=== PATIENT | male | born 1990 ===

== ENCOUNTER 2016-08-30 15:19 | Emergency (ER) | payer OTHER ==
[2016-08-30 15:26] VITALS: BP 105/60; PULSE 66; RESP 16; TEMP 98.4; O2SAT 97
--- NOTE | 2016-08-30 15:37 | ED PDOC ---
HPI: CCC, URI, Sore Throat Time Seen by Provider: 08/30/16 15:28 Chief Complaint (Nursing): ENT Problem Chief Complaint (Provider): cough, throat pain History Per: Patient History/Exam Limitations: no limitations Onset/Duration Of Symptoms: Days ([id number] ) Current Symptoms Are (Timing): Still Present Additional Complaint(s): 26 y/o male presents to the emergency department with a complaint of productive cough described as "lungs filled with mucous" for the past 2 weeks with associated throat irritation. Patient denies chest pain or shortness of breath. He denies fever or chills. Patient is tolerating liquids and solids. He denies recent travel or known sick contacts. Patient admits to smoking 3-4 cigarettes per day and states that he smokes marijuana about 7-8 times per day. PMD: none Past Medical History Reviewed: Historical Data, Nursing Documentation, Vital Signs Vital Signs: Last Vital Signs Temp 98.4 F 08/30/16 15:25 Pulse 66 08/30/16 15:25 Resp 16 08/30/16 15:25 BP 105/60 08/30/16 15:25 Pulse Ox 97 08/30/16 15:44 - Medical History PMH: Anxiety, Gastritis - Surgical History Surgical History: No Surg Hx - Family History Family History: States: No Known Family Hx - Living Arrangements Living Arrangements: With Family - Social History Current smoker - smoking cessation education provided: Yes (light smoker <10 cigarettes daily) Alcohol: Social Drugs: Cannabis (7-8 times a day) - Home Medications Home Medications: Ambulatory Orders Medication Instructions Recorded Ondansetron [Zofran] 4 mg PO Q6H PRN #10 tab 11/11/13 Sertraline [Zoloft] 50 mg PO DAILY 11/14/13 Acetaminophen/Hydrocodone Bi 1 tab PO TID PRN #8 tab 11/15/13 [Vicodin 300 mg-5 mg] Amoxicillin/Clavulanate [Augmentin 1 tab PO BID #6 tab 11/15/13 875 MG-125 MG] Ibuprofen [Motrin Tab] 600 mg PO Q8H PRN #20 tab 11/26/13 Penicillin VK [Pen-Vee K] 500 mg PO BID #20 tab 11/26/13 Acetaminophen [Tylenol] 650 mg PO Q6 #20 tab 06/20/15 Ibuprofen [Motrin] 600 mg PO Q8 #20 tab 09/05/14 Esomeprazole Magnesium [Nexium] 20 mg PO DAILY #30 ecc 10/22/14 LORazepam [Ativan] 0.5 mg PO Q8 PRN #6 tab 07/03/15 Albuterol HFA [Ventolin HFA 90 1 puff IH ASDIR #1 unit 08/30/16 mcg/actuation (8 g)] Azithromycin [Zithromax] 250 mg PO DAILY #6 tab 08/30/16 Benzonatate 200 mg PO TID PRN #20 capsule 08/30/16 - Allergies Allergies/Adverse Reactions: Allergies Allergy/AdvReac Type Severity Reaction Status Date / Time No Known Allergies Allergy Verified 08/30/16 15:25 Review of Systems ROS Statement: Except As Marked, All Systems Reviewed And Found Negative Constitutional: Negative for: Fever, Chills ENT: Positive for: Throat Pain (throat irritation) Cardiovascular: Negative for: Chest Pain Respiratory: Positive for: Cough, Sputum. Negative for: Shortness of Breath, SOB with Exertion Gastrointestinal: Negative for: Nausea, Vomiting Neurological: Negative for: Headache, Dizziness Physical Exam - Reviewed Nursing Documentation Reviewed: Yes Vital Signs Reviewed: Yes - Physical Exam Appears: Positive for: Well, Non-toxic, No Acute Distress Skin: Positive for: Normal Color ENT: Negative for: Nasal Congestion, Pharyngeal Erythema, Tonsillar Exudate, Tonsillar Swelling Neck: Positive for: Normal, Supple Cardiovascular/Chest: Positive for: Regular Rate, Rhythm. Negative for: Murmur Respiratory: Positive for: Normal Breath Sounds, Other (cough noted during exam) . Negative for: Accessory Muscle Use, Respiratory Distress Neurologic/Psych: Positive for: Alert, Oriented - ECG O2 Sat by Pulse Oximetry: 97 (RA) Pulse Ox Interpretation: Normal - Other Rad CXR X-Ray: Interpreted by Me, Viewed By Me X-Ray Interpretation: no acute finding Medical Decision Making Medical Decision Making: Time: 15:25 Initial Impression: Cough with throat pain Initial Plan: -- Chest 2 views (RAD) Prescription given for Zithromax, Tessalon Perles and Ventolin. Patient was advised to take medicines as directed. He was referred to clinic for follow-up and was counseled regarding smoking cessation. Scribe Attestation: Documented by Caridad Leon, acting as a scribe for Izabela Cueva PA-C. Provider Scribe Attestation: All medical record entries made by the Scribe were at my direction and personally dictated by me. I have reviewed the chart and agree that the record accurately reflects my personal performance of the history, physical exam, medical decision making, and the department course for this patient. I have also personally directed, reviewed, and agree with the discharge instructions and disposition. Disposition - Clinical Impression Clinical Impression: Bronchitis - Patient ED Disposition Is Patient to be Admitted: No Counseled Patient/Family Regarding: Studies Performed, Diagnosis, Need For Followup, Rx Given - Disposition Referrals: [facility] [Outside] Disposition: Routine/Home Disposition Time: 16:15 Condition: STABLE Additional Instructions: Take prescription medications as directed. Stop smoking. Follow up in 2-3 days clinic. Prescriptions: Albuterol HFA [Ventolin HFA 90 mcg/actuation (8 g)] 1 puff IH ASDIR #1 unit Azithromycin [Zithromax] 250 mg PO DAILY #6 tab Benzonatate 200 mg PO TID PRN #20 capsule PRN Reason: Cough Instructions: Acute Bronchitis (ED), How to Stop Smoking (ED)
--- NOTE | 2016-08-30 17:00 | RAD ---
HISTORY: cough COMPARISON: Chest x-ray performed 07/03/15 TECHNIQUE: Chest PA and lateral FINDINGS: LUNGS: No focal consolidation. Please note that chest x-ray has limited sensitivity for the detection of pulmonary masses. PLEURA: No significant pleural effusion identified. No definite pneumothorax . CARDIOVASCULAR: The cardiomediastinal silhouette appears within normal limits of size. OSSEOUS STRUCTURES: No acute osseous abnormality identified. VISUALIZED UPPER ABDOMEN: Unremarkable. OTHER FINDINGS: None. IMPRESSION: No focal consolidation, significant pleural effusion, or definite pneumothorax identified.
== END 2016-08-30 16:58 | disposition home or self-care (01) ==
LOC: H.ER 15:19
DX: J40 Bronchitis, not specified as acute or chronic (principal)

== ENCOUNTER 2016-09-17 14:49 | Emergency (ER) | payer SELFPAY ==
[2016-09-17 14:52] VITALS: BP 121/75; PULSE 64; RESP 18; TEMP 98.2; O2SAT 99
--- NOTE | 2016-09-17 15:03 | ED PDOC ---
HPI: CCC, URI, Sore Throat Time Seen by Provider: 09/17/16 14:53 Chief Complaint (Nursing): ENT Problem Chief Complaint (Provider): ENT problem History Per: Patient History/Exam Limitations: no limitations Onset/Duration Of Symptoms: Days (2x) Location Of Pain: Throat (patient is concerned for throat swelling) Severity: Moderate Additional Complaint(s): 26 year old male with a pertinent medical history of bronchitis (diagnosed 2x weeks ago in ED) and anxiety presents to the ED with complaints of throat pain that started 2x days ago. He reports that his throat feels swollen (has difficulty swallowing) and numb and he thinks it is due to the prescription given to him for his bronchitis. He also reports having a mild cough. Patient admits to smoking. Patient denies having fevers, chills, nausea, vomiting, and diarrhea. PMD: Patient does not have a PMD. Past Medical History Reviewed: Historical Data, Nursing Documentation, Vital Signs Vital Signs: Last Vital Signs Temp 98.2 F 09/17/16 14:50 Pulse 64 09/17/16 14:50 Resp 18 09/17/16 14:50 BP 121/75 09/17/16 14:50 Pulse Ox 99 09/17/16 15:16 - Medical History PMH: Anxiety, Bronchitis, Gastritis - Surgical History Surgical History: No Surg Hx - Family History Family History: States: Unknown Family Hx - Living Arrangements Living Arrangements: With Family - Social History Current smoker - smoking cessation education provided: Yes Drugs: Cannabis - Immunization History Hx Tetanus Toxoid Vaccination: No Hx Influenza Vaccination: No Hx Pneumococcal Vaccination: No - Home Medications Home Medications: Ambulatory Orders Medication Instructions Recorded Ondansetron [Zofran] 4 mg PO Q6H PRN #10 tab 11/11/13 Sertraline [Zoloft] 50 mg PO DAILY 11/14/13 Acetaminophen/Hydrocodone Bi 1 tab PO TID PRN #8 tab 11/15/13 [Vicodin 300 mg-5 mg] Amoxicillin/Clavulanate [Augmentin 1 tab PO BID #6 tab 11/15/13 875 MG-125 MG] Ibuprofen [Motrin Tab] 600 mg PO Q8H PRN #20 tab 11/26/13 Penicillin VK [Pen-Vee K] 500 mg PO BID #20 tab 11/26/13 Acetaminophen [Tylenol] 650 mg PO Q6 #20 tab 06/20/15 Ibuprofen [Motrin] 600 mg PO Q8 #20 tab 09/05/14 Esomeprazole Magnesium [Nexium] 20 mg PO DAILY #30 ecc 10/22/14 LORazepam [Ativan] 0.5 mg PO Q8 PRN #6 tab 07/03/15 Albuterol HFA [Ventolin HFA 90 1 puff IH ASDIR #1 unit 08/30/16 mcg/actuation (8 g)] Azithromycin [Zithromax] 250 mg PO DAILY #6 tab 08/30/16 Benzonatate 200 mg PO TID PRN #20 capsule 08/30/16 Ibuprofen [Motrin] 600 mg PO Q8 PRN #15 tab 09/17/16 - Allergies Allergies/Adverse Reactions: Allergies Allergy/AdvReac Type Severity Reaction Status Date / Time No Known Allergies Allergy Verified 08/30/16 15:25 Review of Systems ROS Statement: Except As Marked, All Systems Reviewed And Found Negative Constitutional: Negative for: Fever, Chills ENT: Positive for: Throat Pain, Throat Swelling Respiratory: Positive for: Cough. Negative for: Shortness of Breath Gastrointestinal: Negative for: Nausea, Vomiting Physical Exam - Reviewed Nursing Documentation Reviewed: Yes Vital Signs Reviewed: Yes - Physical Exam Appears: Positive for: Well, Non-toxic, No Acute Distress Head Exam: Positive for: ATRAUMATIC, NORMOCEPHALIC Skin: Positive for: Normal Color, Warm, Dry ENT: Positive for: Normal ENT Inspection, Pharynx Is (clear), TM Is/Are (normal) . Negative for: Pharyngeal Erythema (no edema noted) Neck: Positive for: Normal Cardiovascular/Chest: Positive for: Regular Rate, Rhythm Respiratory: Positive for: Normal Breath Sounds. Negative for: Stridor, Wheezing, Respiratory Distress Neurologic/Psych: Positive for: Alert, Oriented (3x), Other (patient is sleeping in full sentences) - ECG O2 Sat by Pulse Oximetry: 99 (RA) Pulse Ox Interpretation: Normal - Progress ED Course And Treament: Old ED records reviewed. Patient was seen in ED 08/30/16 for cough and sore throat. He was diagnosed with bronchitis and given Rx for Ventolin, zithromax, and benzonatate and was instructed to stop smoking. Medical Decision Making Medical Decision Makin:53 Initial impression: 26 year old male with a history of bronchitis has throat pain. Plan: Reviewed old ED records (see ED course/Tx). Instructed patient to stop taking benzonatate to stop throat numbness and to stop smoking. Scribe Attestation: Documented by Marleen Henson, acting as a scribe for Westley Londono PA-C. Provider Scribe Attestation: All medical record entries made by the Scribe were at my direction and personally dictated by me. I have reviewed the chart and agree that the record accurately reflects my personal performance of the history, physical exam, medical decision making, and the department course for this patient. I have also personally directed, reviewed, and agree with the discharge instructions and disposition. Disposition - Clinical Impression Clinical Impression: Sore throat - Patient ED Disposition Is Patient to be Admitted: No - Disposition Referrals: [facility] [Outside] Disposition Time: 15:24 Condition: FAIR Prescriptions: Ibuprofen [Motrin] 600 mg PO Q8 PRN #15 tab PRN Reason: Sore Throat Instructions: How to Stop Smoking (ED), Pharyngitis (ED)
== END 2016-09-17 15:25 | disposition home or self-care (01) ==
LOC: H.ER 14:49
DX: R07.0 Pain in throat (principal); F17.200 Nicotine dependence, unspecified, uncomplicated

== ENCOUNTER 2017-05-19 23:52 | Emergency (ER) | payer SELFPAY ==
[2017-05-20] VITALS: BP 117/85; PULSE 73; RESP 18; TEMP 98.4; O2SAT 99
[2017-05-20] MEDS ORDERED: Sodium Chloride 0.9% 1,000 ML IV STA (00:08)
--- NOTE | 2017-05-20 00:11 | ED PDOC ---
HPI: Abdomen Time Seen by Provider: 05/20/17 00:01 Chief Complaint (Nursing): GI Problem Chief Complaint (Provider): Nausea History Per: Patient Additional Complaint(s): Pt reports uneasy feeling in stomach X 2 weeks, nausea with eating, decreased appetite and 10 lb weight loss in past 2 months. Reports chills today. Denies fever, vomiting, constipation, diarrhea. Past Medical History Reviewed: Nursing Documentation, Vital Signs Vital Signs: Last Vital Signs Temp 98.4 F 05/19/17 23:57 Pulse 73 05/19/17 23:57 Resp 18 05/19/17 23:57 BP 117/85 05/19/17 23:57 Pulse Ox 99 05/19/17 23:57 - Medical History PMH: Anxiety, Bronchitis, Gastritis - Surgical History Surgical History: No Surg Hx - Family History Family History: States: Unknown Family Hx - Social History Current smoker - smoking cessation education provided: No Alcohol: Occasional Drugs: Cannabis (Daily) - Immunization History Hx Tetanus Toxoid Vaccination: No Hx Influenza Vaccination: No Hx Pneumococcal Vaccination: No - Home Medications Home Medications: Ambulatory Orders Medication Instructions Recorded Ondansetron [Zofran] 4 mg PO Q6H PRN #10 tab 11/11/13 Sertraline [Zoloft] 50 mg PO DAILY 11/14/13 Acetaminophen/Hydrocodone Bi 1 tab PO TID PRN #8 tab 11/15/13 [Vicodin 300 mg-5 mg] Amoxicillin/Clavulanate [Augmentin 1 tab PO BID #6 tab 11/15/13 875 MG-125 MG] Ibuprofen [Motrin Tab] 600 mg PO Q8H PRN #20 tab 11/26/13 Penicillin VK [Pen-Vee K] 500 mg PO BID #20 tab 11/26/13 Acetaminophen [Tylenol] 650 mg PO Q6 #20 tab 09/05/14 Ibuprofen [Motrin] 600 mg PO Q8 #20 tab 09/05/14 Esomeprazole Magnesium [Nexium] 20 mg PO DAILY #30 ecc 10/22/14 LORazepam [Ativan] 0.5 mg PO Q8 PRN #6 tab 07/03/15 Albuterol HFA [Ventolin HFA 90 1 puff IH ASDIR #1 unit 08/30/16 mcg/actuation (8 g)] Azithromycin [Zithromax] 250 mg PO DAILY #6 tab 08/30/16 Benzonatate 200 mg PO TID PRN #20 capsule 08/30/16 Ibuprofen [Motrin] 600 mg PO Q8 PRN #15 tab 09/17/16 - Allergies Allergies/Adverse Reactions: Allergies Allergy/AdvReac Type Severity Reaction Status Date / Time No Known Allergies Allergy Verified 08/30/16 15:25 Review of Systems Constitutional: Positive for: Chills, Weight loss. Negative for: Fever, Weakness, Malaise Respiratory: Negative for: Cough, Shortness of Breath Gastrointestinal: Positive for: Nausea. Negative for: Vomiting, Abdominal Pain , Diarrhea, Hematochezia, Hematemesis Genitourinary Male: Negative for: Dysuria, Hematuria Musculoskeletal: Negative for: Neck Pain, Back Pain Skin: Negative for: Rash, Lesions Neurological: Negative for: Headache, Dizziness Physical Exam - Reviewed Nursing Documentation Reviewed: Yes Vital Signs Reviewed: Yes - Physical Exam Appears: Positive for: Well, No Acute Distress Skin: Positive for: Normal Color, Warm, Dry Eye Exam: Positive for: Normal appearance, EOMI, PERRL ENT: Positive for: Other (MM dry) Cardiovascular/Chest: Positive for: Regular Rate, Rhythm Respiratory: Positive for: Normal Breath Sounds. Negative for: Rales, Rhonchi, Wheezing Gastrointestinal/Abdominal: Positive for: Bowel Sounds, Soft, Tenderness (Mild epigastric/LUQ). Negative for: Mass, Distended, Guarding, Rebound Back: Positive for: Normal Inspection Extremity: Positive for: Normal ROM Neurologic/Psych: Positive for: Alert, Oriented - ECG O2 Sat by Pulse Oximetry: 99 Medical Decision Making Medical Decision Makin yo male with decreased appetite, nausea and abdominal pain. - labs - CT abd/pelvis - IVF - Zofran - Bentyl Disposition - Disposition
[2017-05-20 00:19] LABS: BASO # 0.1 K/uL (0.0-0.2); BASO % 0.6 % (0.0-2.0); EOS # 0.1 K/uL (0.0-0.7); EOS % 0.7 % (0.0-4.0); HEMOGLOBIN 14.3 g/dL (12.0-18.0); LYMPH # 2.4 K/uL (1.0-4.3); LYMPH % 19.4 % (20.0-40.0); MEAN CELL VOLUME 93.6 fl (80.0-94.0); MEAN CORPUSCULAR HEMOGLOBIN 31.4 pg (27.0-31.0); MEAN CORPUSCULAR HGB CONC 33.5 g/dL (33.0-37.0); MEAN PLATELET VOLUME 7.5 fl (7.2-11.7); MONO # 0.9 K/uL (0.0-0.8); NEUT # 8.8 K/uL (1.8-7.0); NEUT % 72.3 % (50.0-75.0); NRBC % 0.1 % (0.0-0.0); RBC 4.57 Mil/uL (4.40-5.90); RED CELL DISTRIBUTION WIDTH 13.8 % (11.5-14.5); WHITE BLOOD COUNT 12.2 K/uL (4.8-10.8)
[2017-05-20 00:27] LABS: URINE BACTERIA OCC (<OCC); URINE BILIRUBIN NEGATIVE (NEGATIVE); URINE BLOOD NEGATIVE (NEGATIVE); URINE CLARITY CLOUDY (Clear); URINE COLOR YELLOW (YELLOW); URINE GLUCOSE (UA) NEG (Normal); URINE LEUKOCYTE ESTERASE NEG Leu/uL (Negative); URINE NITRATE NEGATIVE (NEGATIVE); URINE PROTEIN NEGATIVE (NEGATIVE); URINE UROBILINOGEN 0.2-1.0 mg/dL (0.2-1.0)
[2017-05-20 00:28] LABS: ALB/GLOB RATIO 1.4 (1.0-2.1); ALBUMIN 4.9 g/dL (3.5-5.0); ALT/SGPT 41 U/L (21-72); AST/SGOT 26 U/L (17-59); BLOOD UREA NITROGEN 13 mg/dl (9-20); GFR AFRICAN-AMERICAN > 60; GFR NON-AFRICAN AMERICAN > 60; LIPASE 88 U/L (23-300)
--- NOTE | 2017-05-20 01:37 | ED PDOC ---
- Laboratory Results Result Diagrams: 05/20/17 00:16 05/20/17 00:16 - ECG O2 Sat by Pulse Oximetry: 99 Medical Decision Making Medical Decision Making: Time: 01:00 Patient signed out to me by Dr. Todd pending CT. Time: 02:56 CT ABDOMEN AND PELVIS FINDINGS: Limitations: Motion artifact - mild. Lower thorax: 0.4 cm RIGHT middle lobe nodule. ABDOMEN: Liver: Unremarkable. No mass. Gallbladder and bile ducts: No calcified stones. No ductal dilation. Pancreas: No ductal dilation. No mass. Spleen: No splenomegaly. Adrenals: No mass. Kidneys and ureters: No mass. No hydronephrosis. Stomach and bowel: No definite mural thickening. No obstruction. Appendix: Normal caliber. No definite inflammation. PELVIS: Bladder: Unremarkable. Reproductive: Unremarkable as visualized. ABDOMEN and PELVIS: Intraperitoneal space: Trace free fluid within pelvis. No free air. Bones/joints: Probable bone island. No acute fracture. Soft tissues: Unremarkable. Vasculature: Unremarkable. No aneurysm. Lymph nodes: No pathologically enlarged lymph nodes. IMPRESSION: 1. Trace pelvic ascites, uncertain significance. Clinical correlation is needed. 2. Pulmonary nodule, nonspecific. Compare with prior examinations if available. 3. Incidental/non-acute findings are described above. 330 Pt. appears well, feeling better, vitals stable. Patient admits to excessive MJ use, advised to stop as symptoms may be related to this. Will refer to clinic for possible referral to GI for endoscopy/colonoscopy. Warning/return precautions given. Will treat for UTI. Scribe Attestation: Documented by Timbo Ruiz, acting as a scribe for Adam Bravo MD. Provider Scribe Attestation: All medical record entries made by the Scribe were at my direction and personally dictated by me. I have reviewed the chart and agree that the record accurately reflects my personal performance of the history, physical exam, medical decision making, and the department course for this patient. I have also personally directed, reviewed, and agree with the discharge instructions and disposition. Disposition - Clinical Impression Clinical Impression: Abdominal pain, UTI (urinary tract infection) - POA Present On Arrival: None - Disposition Referrals: [facility] [Outside] Disposition: Routine/Home Disposition Time: 03:46 Condition: STABLE Prescriptions: Dicyclomine [Bentyl] 20 mg PO BID #30 tab Nitrofurantoin Macrocrystals [Macrobid] 100 mg PO BID 5 Days cap Instructions: Urinary Tract Infection, Adult (DC), Acute Abdomen (Belly Pain), Adult (DC) Forms: [employer] ([place])
[2017-05-20] MEDS ORDERED: Iohexol 300 100 ML IJ ONE (01:51)
--- NOTE | 2017-05-20 02:56 | CT ---
EXAM: CT Abdomen and Pelvis With Intravenous Contrast CLINICAL HISTORY: 26 years old, male; Pain; Abdominal pain; Generalized; Additional info: Epigastric/luq pain, nausea, weight loss TECHNIQUE: Axial computed tomography images of the abdomen and pelvis with intravenous contrast. All CT scans at this facility use one or more dose reduction techniques, viz.: automated exposure control; ma/kV adjustment per patient size (including targeted exams where dose is matched to indication; i.e. head); or iterative reconstruction technique. Coronal and sagittal reformatted images were created and reviewed. CONTRAST: 90 mL of omnipaque administered intravenously. COMPARISON: No relevant prior studies available. FINDINGS: Limitations: Motion artifact - mild. Lower thorax: 0.4 cm RIGHT middle lobe nodule. ABDOMEN: Liver: Unremarkable. No mass. Gallbladder and bile ducts: No calcified stones. No ductal dilation. Pancreas: No ductal dilation. No mass. Spleen: No splenomegaly. Adrenals: No mass. Kidneys and ureters: No mass. No hydronephrosis. Stomach and bowel: No definite mural thickening. No obstruction. Appendix: Normal caliber. No definite inflammation. PELVIS: Bladder: Unremarkable. Reproductive: Unremarkable as visualized. ABDOMEN and PELVIS: Intraperitoneal space: Trace free fluid within pelvis. No free air. Bones/joints: Probable bone island. No acute fracture. Soft tissues: Unremarkable. Vasculature: Unremarkable. No aneurysm. Lymph nodes: No pathologically enlarged lymph nodes. IMPRESSION: 1. Trace pelvic ascites, uncertain significance. Clinical correlation is needed. 2. Pulmonary nodule, nonspecific. Compare with prior examinations if available. 3. Incidental/non-acute findings are described above.
== END 2017-05-20 04:08 | disposition home or self-care (01) ==
LOC: H.ER 23:52
DX: N39.0 Urinary tract infection, site not specified (principal); R10.9 Unspecified abdominal pain
CPT/HCPCS: 74177; 80053; 81003; 83690; 85025; 99283; J2405; J7040; Q9967

== ENCOUNTER 2017-05-31 16:48 | Emergency (ER) | payer SELFPAY ==
[2017-05-31 17:15] VITALS: BP 116/78; PULSE 85; RESP 16; TEMP 98.6; O2SAT 100
--- NOTE | 2017-05-31 18:45 | ED PDOC ---
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 Otherwise (-) fever (-) chills (- ) cough (-) congestion. No other complaints. Past Medical History Reviewed: Historical Data, Nursing Documentation, Vital Signs Vital Signs: Last Vital Signs Temp 98.6 F 05/31/17 17:14 Pulse 85 05/31/17 17:14 Resp 16 05/31/17 17:14 BP 116/78 05/31/17 17:14 Pulse Ox 100 05/31/17 17:14 - Medical History PMH: Anxiety, Bronchitis, Gastritis - Surgical History Surgical History: No Surg Hx - Family History Family History: States: Unknown Family Hx - Immunization History Hx Tetanus Toxoid Vaccination: No Hx Influenza Vaccination: No Hx Pneumococcal Vaccination: No - Home Medications Home Medications: Ambulatory Orders Medication Instructions Recorded Ondansetron [Zofran] 4 mg PO Q6H PRN #10 tab 11/11/13 Sertraline [Zoloft] 50 mg PO DAILY 11/14/13 Acetaminophen/Hydrocodone Bi 1 tab PO TID PRN #8 tab 11/15/13 [Vicodin 300 mg-5 mg] Amoxicillin/Clavulanate [Augmentin 1 tab PO BID #6 tab 11/15/13 875 MG-125 MG] Ibuprofen [Motrin Tab] 600 mg PO Q8H PRN #20 tab 11/26/13 Penicillin VK [Pen-Vee K] 500 mg PO BID #20 tab 11/26/13 Acetaminophen [Tylenol] 650 mg PO Q6 #20 tab 09/05/14 Ibuprofen [Motrin] 600 mg PO Q8 #20 tab 09/05/14 Esomeprazole Magnesium [Nexium] 20 mg PO DAILY #30 ecc 10/22/14 LORazepam [Ativan] 0.5 mg PO Q8 PRN #6 tab 07/03/15 Albuterol HFA [Ventolin HFA 90 1 puff IH ASDIR #1 unit 08/30/16 mcg/actuation (8 g)] Azithromycin [Zithromax] 250 mg PO DAILY #6 tab 08/30/16 Benzonatate 200 mg PO TID PRN #20 capsule 08/30/16 Ibuprofen [Motrin] 600 mg PO Q8 PRN #15 tab 09/17/16 Dicyclomine [Bentyl] 20 mg PO BID #30 tab 05/20/17 Nitrofurantoin Macrocrystals 100 mg PO BID 5 Days cap 05/20/17 [Macrobid] - Allergies Allergies/Adverse Reactions: Allergies Allergy/AdvReac Type Severity Reaction Status Date / Time No Known Allergies Allergy Verified 05/31/17 17:14 Review of Systems ROS Statement: Except As Marked, All Systems Reviewed And Found Negative Constitutional: Negative for: Fever, Chills ENT: Positive for: Other (right ear clogging) Respiratory: Negative for: Cough Physical Exam - Reviewed Nursing Documentation Reviewed: Yes Vital Signs Reviewed: Yes - Physical Exam Comments: GENERAL APPEARANCE: Patient is awake, alert, oriented x 3, in no acute distress. SKIN: Warm, dry; (-) cyanosis. EYES: (-) conjunctival pallor. ENMT: Mucous membranes moist. (-) TM erythema or bulging bilaterally - ECG O2 Sat by Pulse Oximetry: 100 (RA) Pulse Ox Interpretation: Normal Medical Decision Making Medical Decision Making: Impression: Right ear discomfort Plan: Advised to follow up with primary care physician in 1-2 days without fail. Return to the emergency room at any time for any new or worsening symptoms. Patient states he fully agrees with and understands discharge instructions. States that he agrees with the plan and disposition. Verbalized and repeated discharge instructions and plan. I have given the patient opportunity to ask any additional questions. Scribe Attestation: Documented by Julieta Reece acting as a scribe for Kylie Miller PA-C. Provider Attestation: All medical record entries made by the Scribe were at my direction and personally dictated by me. I have reviewed the chart and agree that the record accurately reflects my personal performance of the history, physical exam, medical decision making, and the department course for this patient. I have also personally directed, reviewed, and agree with the discharge instructions and disposition. Disposition - Clinical Impression Clinical Impression: Clogged ear - Disposition Disposition: Routine/Home Disposition Time: 17:40 Condition: STABLE Additional Instructions: Thank you for letting us take care of you today. You were treated for clogged right ear. The emergency medical care you received today was directed at your acute symptoms. Return to the Emergency Department if your symptoms worsen, do not improve, or if you have any other problems. Please contact your doctor in 2 days for re-evaluation and follow up. Bring any paperwork you were given at discharge with you along with any medications you are taking to your follow up visit. Our treatment cannot replace ongoing medical care by a primary care provider (PCP) outside of the emergency department. Thank you for allowing the [facility] team to be part of your care today. If you had an X-Ray or CT scan: A Radiologist will review the ED reading if any change in treatment is needed we will contact you. Instructions: Eustachian Tube Problems (DC) Forms: [employer] ([place])
== END 2017-05-31 18:30 | disposition home or self-care (01) ==
LOC: H.ER 16:48
DX: H91.92 Unspecified hearing loss, left ear (principal)

== ENCOUNTER 2017-06-02 20:26 | Emergency (ER) | payer SELFPAY ==
[2017-06-02 20:43] VITALS: BP 126/80; RESP 14; TEMP 98.9; O2SAT 99
[2017-06-02] MEDS ORDERED: Alum-Mag Hydrox-Simethicone Susp (30 mL) PO ONE (20:49)
--- NOTE | 2017-06-02 21:02 | ED PDOC ---
HPI: General Adult Time Seen by Provider: 06/02/17 20:50 Chief Complaint (Nursing): ENT Problem Chief Complaint (Provider): Throat Pain History Per: Patient History/Exam Limitations: no limitations Onset/Duration Of Symptoms: Hrs Have you had recent travel within the past 21 days to any of the following countries: [place], [place], [place] or [place]?: No Current Symptoms Are (Timing): Still Present Additional Complaint(s): 26 year old male presents to the emergency department complaining of throat pain which began today. He reports that prior to the pain all he had was some cereal. Patient also notes that he had a cough which has resolved. He states that he groves snot taken any medications for pain. Past Medical History Reviewed: Historical Data, Nursing Documentation, Vital Signs Vital Signs: Last Vital Signs Temp 98.9 F 06/02/17 20:41 Pulse 56 L 06/02/17 21:59 Resp 14 06/02/17 20:41 BP 126/80 06/02/17 20:41 Pulse Ox 99 06/02/17 22:06 - Medical History PMH: Anxiety, Bronchitis, Gastritis - Surgical History Surgical History: No Surg Hx - Family History Family History: States: Unknown Family Hx - Immunization History Hx Tetanus Toxoid Vaccination: No Hx Influenza Vaccination: No Hx Pneumococcal Vaccination: No - Home Medications Home Medications: Ambulatory Orders Medication Instructions Recorded Ondansetron [Zofran] 4 mg PO Q6H PRN #10 tab 11/11/13 Sertraline [Zoloft] 50 mg PO DAILY 11/14/13 Acetaminophen/Hydrocodone Bi 1 tab PO TID PRN #8 tab 11/15/13 [Vicodin 300 mg-5 mg] Amoxicillin/Clavulanate [Augmentin 1 tab PO BID #6 tab 11/15/13 875 MG-125 MG] Ibuprofen [Motrin Tab] 600 mg PO Q8H PRN #20 tab 11/26/13 Penicillin VK [Pen-Vee K] 500 mg PO BID #20 tab 11/26/13 Acetaminophen [Tylenol] 650 mg PO Q6 #20 tab 09/05/14 Ibuprofen [Motrin] 600 mg PO Q8 #20 tab 09/05/14 Esomeprazole Magnesium [Nexium] 20 mg PO DAILY #30 ecc 10/22/14 LORazepam [Ativan] 0.5 mg PO Q8 PRN #6 tab 07/03/15 Albuterol HFA [Ventolin HFA 90 1 puff IH ASDIR #1 unit 08/30/16 mcg/actuation (8 g)] Azithromycin [Zithromax] 250 mg PO DAILY #6 tab 08/30/16 Benzonatate 200 mg PO TID PRN #20 capsule 08/30/16 Ibuprofen [Motrin] 600 mg PO Q8 PRN #15 tab 09/17/16 Dicyclomine [Bentyl] 20 mg PO BID #30 tab 05/20/17 Nitrofurantoin Macrocrystals 100 mg PO BID 5 Days cap 05/20/17 [Macrobid] Ranitidine HCl [Zantac] 150 mg PO BID #10 tablet 06/02/17 - Allergies Allergies/Adverse Reactions: Allergies Allergy/AdvReac Type Severity Reaction Status Date / Time No Known Allergies Allergy Verified 06/02/17 20:40 Review of Systems ROS Statement: Except As Marked, All Systems Reviewed And Found Negative Constitutional: Negative for: Fever, Chills ENT: Positive for: Throat Pain Respiratory: Negative for: Cough Physical Exam - Reviewed Nursing Documentation Reviewed: Yes Vital Signs Reviewed: Yes - Physical Exam Appears: Positive for: Non-toxic, No Acute Distress (No difficulty with speech) Skin: Positive for: Normal Color, Warm, Dry. Negative for: Rash Eye Exam: Positive for: Normal appearance, EOMI, PERRL ENT: Positive for: Normal ENT Inspection, Pharynx Is (clear). Negative for: Nasal Congestion, Pharyngeal Erythema, Tonsillar Exudate, Tonsillar Swelling Neck: Positive for: Normal, Painless ROM, Supple Neurologic/Psych: Positive for: Alert, Oriented, Gait - ECG ECG Rhythm: Positive for: Sinus Bradycardia (56 bpm no ectopy no acute changes) O2 Sat by Pulse Oximetry: 99 (RA) Pulse Ox Interpretation: Normal - Progress ED Course And Treament: cxr: wnl soft tissue neck: wnl Patient given advised follow up with ENT for further throat discomfort. Medical Decision Making Medical Decision Makin Initial Impression 26 year old male presenting with throat pain Initial Plan: * Lidocaine viscous 2% 5mL PO * Maalox Plus 30mL PO * Rapid Strep Group * Reevaluation Documented by Magalie Lugo acting as a scribe for Westley Londono PA-C. All medical record entries made by the Scribe were at my direction and personally dictated by me. I have reviewed the chart and agree that the record accurately reflects my personal performance of the history, physical exam, medical decision making, and the department course for this patient. I have also personally directed, reviewed, and agree with the discharge instructions and disposition. Disposition - Clinical Impression Clinical Impression: Esophagitis, Throat pain - Patient ED Disposition Is Patient to be Admitted: No - Disposition Referrals: [facility] [Outside] David Salazar MD [Staff Provider] - Disposition: Routine/Home Disposition Time: 23:04 Condition: FAIR Prescriptions: Ranitidine HCl [Zantac] 150 mg PO BID #10 tablet Instructions: Acid Reflux (Gastroesophageal Reflux Disease), Adult (DC), Ulcer and Gastritis Diet Forms: [employer] ([place])
[2017-06-02] MEDS ORDERED: Famotidine 40 MG/5 ML PO STA (21:49)
[2017-06-02 22:18] VITALS: PULSE 56
--- NOTE | 2017-06-03 09:08 | CARD ---
APPROVED REPORT EKG Measurement Heart [id number] <Conclusion> Sinus bradycardia Otherwise normal ECG
--- NOTE | 2017-06-03 09:51 | RAD ---
HISTORY: routine COMPARISON: 08/30/2016 TECHNIQUE: Chest PA and lateral FINDINGS: LUNGS: No active pulmonary disease. PLEURA: No significant pleural effusion identified. No pneumothorax apparent. CARDIOVASCULAR: Normal. OSSEOUS STRUCTURES: No significant abnormalities. VISUALIZED UPPER ABDOMEN: Normal. OTHER FINDINGS: None. IMPRESSION: No active disease.
--- NOTE | 2017-06-03 09:52 | RAD ---
PROCEDURE: Radiographs of the neck (soft tissue). HISTORY: throat pain COMPARISON: None. TECHNIQUE: Frontal and Lateral Radiographs of the neck, optimized for soft tissue visualization. FINDINGS: SOFT TISSUES: Frontal and lateral views of the soft tissues of the neck were performed. No prevertebral soft tissue swelling is seen. No epiglottic or aryepiglottic thickening is noted. No subglottic narrowing or distention is seen. No radiopaque foreign body seen. CERVICAL SPINE: Grossly unremarkable. OTHER FINDINGS: Lung apices are unremarkable. IMPRESSION: Unremarkable radiographs of the soft tissues of the neck.
== END 2017-06-02 23:06 | disposition home or self-care (01) ==
LOC: H.ER 20:26
DX: K20.9 Esophagitis, unspecified (principal); F41.9 Anxiety disorder, unspecified

== ENCOUNTER 2017-10-06 01:05 | Emergency (ER) | payer SELFPAY ==
[2017-10-06 01:24] VITALS: TEMP 98.3
[2017-10-06 02:15] LABS: HEMOGLOBIN 14.4 g/dL (12.0-18.0); MEAN CELL VOLUME 95.1 fl (80.0-94.0); MEAN CORPUSCULAR HEMOGLOBIN 32.2 pg (27.0-31.0); MEAN CORPUSCULAR HGB CONC 33.9 g/dL (33.0-37.0); RBC 4.47 Mil/uL (4.40-5.90); RED CELL DISTRIBUTION WIDTH 13.6 % (11.5-14.5)
[2017-10-06 02:24] LABS: ALB/GLOB RATIO 1.5 (1.0-2.1); ALBUMIN 4.3 g/dL (3.5-5.0); ALT/SGPT 31 U/L (21-72); AST/SGOT 27 U/L (17-59); BILIRUBIN,DIRECT 0.2 mg/ml (0.0-0.4); BLOOD UREA NITROGEN 16 mg/dl (9-20); CALCIUM 9.6 mg/dL (8.4-10.2); GFR AFRICAN-AMERICAN > 60; GFR NON-AFRICAN AMERICAN > 60; LIPASE 68 U/L (23-300)
--- NOTE | 2017-10-06 02:39 | ED PDOC ---
HPI: Abdomen Time Seen by Provider: 10/06/17 01:45 Chief Complaint (Nursing): Abdominal Pain Chief Complaint (Provider): Abdominal Numbness History Per: Patient History/Exam Limitations: no limitations Onset/Duration Of Symptoms: Days (x1 month) Current Symptoms Are (Timing): Still Present Additional Complaint(s): 27 year old male with no significant past medical history presents to the ED with right sided abdominal numbness onset last month. Patient reports numbness was more pronounced today. He felt some nausea but believes it is related to the food he ate earlier. Patient denies vomiting, fever, abnormal bowel movements or any other medical complaints. He admits he drinks every day, but denies heavy drinking and drug use. PMD: none provided. Past Medical History Reviewed: Historical Data, Nursing Documentation, Vital Signs Vital Signs: Last Vital Signs Temp 98.3 F 10/06/17 01:21 Pulse 72 10/06/17 01:21 Resp 16 10/06/17 01:21 BP 119/71 10/06/17 01:21 Pulse Ox 99 10/06/17 03:12 - Medical History PMH: Anxiety, Bronchitis, Gastritis - Family History Family History: States: Unknown Family Hx - Social History Alcohol: Other Drugs: Denies - Immunization History Hx Tetanus Toxoid Vaccination: No Hx Influenza Vaccination: No Hx Pneumococcal Vaccination: No - Home Medications Home Medications: Ambulatory Orders Medication Instructions Recorded Ondansetron [Zofran] 4 mg PO Q6H PRN #10 tab 11/11/13 Sertraline [Zoloft] 50 mg PO DAILY 11/14/13 Acetaminophen/Hydrocodone Bi 1 tab PO TID PRN #8 tab 11/15/13 [Vicodin 300 mg-5 mg] Amoxicillin/Clavulanate [Augmentin 1 tab PO BID #6 tab 11/15/13 875 MG-125 MG] Ibuprofen [Motrin Tab] 600 mg PO Q8H PRN #20 tab 11/26/13 Penicillin VK [Penicillin VK Tab] 500 mg PO BID #20 tab 11/26/13 Acetaminophen [Tylenol] 650 mg PO Q6 #20 tab 09/05/14 Ibuprofen [Motrin] 600 mg PO Q8 #20 tab 09/05/14 Esomeprazole Magnesium [Nexium] 20 mg PO DAILY #30 ecc 10/22/14 LORazepam [Ativan] 0.5 mg PO Q8 PRN #6 tab 07/03/15 Albuterol HFA [Ventolin HFA 90 1 puff IH ASDIR #1 unit 08/30/16 mcg/actuation (8 g)] Azithromycin [Zithromax] 250 mg PO DAILY #6 tab 08/30/16 Benzonatate 200 mg PO TID PRN #20 capsule 08/30/16 Ibuprofen [Motrin] 600 mg PO Q8 PRN #15 tab 09/17/16 Dicyclomine [Bentyl] 20 mg PO BID #30 tab 05/20/17 Nitrofurantoin Macrocrystals 100 mg PO BID 5 Days cap 05/20/17 [Macrobid] Ranitidine HCl [Zantac] 150 mg PO BID #10 tablet 06/02/17 - Allergies Allergies/Adverse Reactions: Allergies Allergy/AdvReac Type Severity Reaction Status Date / Time No Known Allergies Allergy Verified 06/02/17 20:40 Review of Systems ROS Statement: Except As Marked, All Systems Reviewed And Found Negative Gastrointestinal: Positive for: Nausea Neurological: Positive for: Numbness (right abdominal) Physical Exam - Reviewed Nursing Documentation Reviewed: Yes Vital Signs Reviewed: Yes - Physical Exam Appears: Positive for: Non-toxic, No Acute Distress Head Exam: Positive for: ATRAUMATIC, NORMOCEPHALIC Skin: Positive for: Normal Color, Warm, Dry Eye Exam: Positive for: Normal appearance, EOMI, PERRL Neck: Positive for: Normal, Painless ROM Cardiovascular/Chest: Positive for: Regular Rate, Rhythm. Negative for: Murmur Respiratory: Positive for: Normal Breath Sounds. Negative for: Respiratory Distress Gastrointestinal/Abdominal: Positive for: Normal Exam, Soft. Negative for: Tenderness Extremity: Positive for: Normal ROM (upper and lower) Neurologic/Psych: Positive for: Alert, Oriented (x3). Negative for: Motor/ Sensory Deficits - Laboratory Results Result Diagrams: 10/06/17 02:12 10/06/17 02:12 - ECG O2 Sat by Pulse Oximetry: 99 (RA) Pulse Ox Interpretation: Normal Medical Decision Making Medical Decision Making: Time: 1:53 Assessment: 27 year old male with no past medical history presenting with abdominal numbness. Patient is well appearing, normal vitals and, normal exam. Not concerned for acute gall bladder disease or acute liver disease. Given alcohol abuse will check liver enzymes Initial Plan: --BMP --Lipase --Liver profile --CBC Time: 3:10 --Patient medically cleared for discharge home. Diagnosis paresthesias. Patient advised to follow up with PMD in 1-2 days. Scribe Attestation: Documented by Gisell Diaz, acting as a scribe for Adam Bravo MD Provider Scribe Attestation: All medical record entries made by the Scribe were at my direction and personally dictated by me. I have reviewed the chart and agree that the record accurately reflects my personal performance of the history, physical exam, medical decision making, and the department course for this patient. I have also personally directed, reviewed, and agree with the discharge instructions and disposition. Disposition - Clinical Impression Clinical Impression: Numbness - Disposition Referrals: [facility] [Outside] Disposition: Routine/Home Disposition Time: 03:10 Condition: STABLE Instructions: Paresthesias (DC) Forms: [employer] ([place])
[2017-10-06 03:21] VITALS: BP 115/78; PULSE 89; RESP 19; O2SAT 97
== END 2017-10-06 03:25 | disposition home or self-care (01) ==
LOC: H.ER 01:05
DX: R00.2 Palpitations (principal)

== ENCOUNTER 2018-01-26 10:59 | Emergency (ER) | payer OTHER ==
[2018-01-26 11:01] VITALS: BMI 26.4
[2018-01-26 11:03] VITALS: TEMP 97.9
--- NOTE | 2018-01-26 11:42 | RAD ---
PROCEDURE: Right Hand Radiographs. HISTORY: pain COMPARISON: None. FINDINGS: BONES: Three views of the right hand were performed. No fracture is seen. No lytic process is noted. No dislocation of the phalanges is seen. Visualized carpal bones are unremarkable. Joint spaces are within normal limits. JOINTS: Normal. No osteoarthritic changes. SOFT TISSUES: Normal. OTHER FINDINGS: None. IMPRESSION: Normal right hand radiographs.
--- NOTE | 2018-01-26 11:43 | RAD ---
Date of service: 01/26/2018 PROCEDURE: Right Wrist Radiographs. HISTORY: pain COMPARISON: None. FINDINGS: BONES: Three views of the right wrist were performed for right wrist pain. No fracture is seen. No dislocation of the carpal bones is seen. No abnormal malalignment of the carpal bones is noted. Navicular bone is intact. No erosions are seen. Distal radius and metacarpals are intact. JOINTS: Normal. No dislocation. SOFT TISSUES: Normal. OTHER FINDINGS: None. IMPRESSION: No appreciable fracture.
--- NOTE | 2018-01-26 12:21 | ED PDOC ---
Upper Extremity Pain/Injury Time Seen by Provider: 01/26/18 11:04 Chief Complaint (Nursing): Upper Extremity Problem/Injury Chief Complaint (Provider): right wrist pain History Per: Patient History/Exam Limitations: no limitations Onset/Duration Of Symptoms: Days (x3) Current Symptoms Are (Timing): Still Present Exacerbating Factor(s): Movement Additional Complaint(s): Linus Rivera is a 27 year old male, with no significant past medical history, who presents to the emergency department complaining of right wrist pain onset for x3 days. Patient states for the past week he's been having to carry his 42inch TV under his right arm pit several times. Patient further states x3 days while carrying TV he developed numbness to his hand that travels up his arm. Pain worsens with movement of the wrist. He denies any blunt trauma, weakness or other medical complaints. PMD: None provided. Past Medical History Reviewed: Historical Data, Nursing Documentation, Vital Signs Vital Signs: Last Vital Signs Temp 97.9 F 01/26/18 11:01 Pulse 73 01/26/18 11:01 Resp 17 01/26/18 11:01 BP 126/72 01/26/18 11:01 Pulse Ox 99 01/26/18 11:01 - Medical History PMH: Anxiety, Bronchitis, Gastritis - Surgical History Surgical History: No Surg Hx - Family History Family History: States: No Known Family Hx - Social History Current smoker - smoking cessation education provided: Yes (Light smoker <10 cigarettes daily) Alcohol: None Drugs: Cannabis - Immunization History Hx Tetanus Toxoid Vaccination: No Hx Influenza Vaccination: No Hx Pneumococcal Vaccination: No - Home Medications Home Medications: Ambulatory Orders Medication Instructions Recorded Ondansetron [Zofran] 4 mg PO Q6H PRN #10 tab 11/11/13 Sertraline [Zoloft] 50 mg PO DAILY 11/14/13 Acetaminophen/Hydrocodone Bi 1 tab PO TID PRN #8 tab 11/15/13 [Vicodin 300 mg-5 mg] Amoxicillin/Clavulanate [Augmentin 1 tab PO BID #6 tab 11/15/13 875 MG-125 MG] Ibuprofen [Motrin Tab] 600 mg PO Q8H PRN #20 tab 11/26/13 RX: Penicillin VK [Penicillin VK 500 mg PO BID #20 tab 11/26/13 Tab] Acetaminophen [Tylenol] 650 mg PO Q6 #20 tab 09/05/14 Ibuprofen [Motrin] 600 mg PO Q8 #20 tab 09/05/14 Esomeprazole Magnesium [Nexium] 20 mg PO DAILY #30 ecc 10/22/14 LORazepam [Ativan] 0.5 mg PO Q8 PRN #6 tab 07/03/15 Albuterol HFA [Ventolin HFA 90 1 puff IH ASDIR #1 unit 08/30/16 mcg/actuation (8 g)] Azithromycin [Zithromax] 250 mg PO DAILY #6 tab 08/30/16 RX: Benzonatate 200 mg PO TID PRN #20 capsule 08/30/16 Ibuprofen [Motrin] 600 mg PO Q8 PRN #15 tab 09/17/16 Dicyclomine [Bentyl] 20 mg PO BID #30 tab 05/20/17 Nitrofurantoin Macrocrystals 100 mg PO BID 5 Days cap 05/20/17 [Macrobid] Ranitidine HCl [Zantac] 150 mg PO BID #10 tablet 06/02/17 RX: Naproxen [Naprosyn] 500 mg PO BID PRN #10 tab 01/26/18 - Allergies Allergies/Adverse Reactions: Allergies Allergy/AdvReac Type Severity Reaction Status Date / Time No Known Allergies Allergy Verified 06/02/17 20:40 Review of Systems ROS Statement: Except As Marked, All Systems Reviewed And Found Negative Musculoskeletal: Positive for: Other (right wrist pain) Neurological: Positive for: Numbness (right wrist ). Negative for: Weakness Physical Exam - Reviewed Nursing Documentation Reviewed: Yes Vital Signs Reviewed: Yes - Physical Exam Appears: Positive for: No Acute Distress Head Exam: Positive for: ATRAUMATIC, NORMAL INSPECTION, NORMOCEPHALIC Skin: Positive for: Normal Color, Warm, Dry Eye Exam: Positive for: Normal appearance, EOMI, PERRL Neck: Positive for: Normal, Painless ROM Pulses-Radial (L): 2+ Pulses-Radial (R): 2+ Extremity: Positive for: Normal ROM (Pain elicited with extension and flexion), Other (Negative Phalen's and Tinel's test. ). Negative for: Tenderness (to right upper extremities), Deformity (right upper extremities), Swelling (right upper extremities) Neurologic/Psych: Positive for: Alert, Oriented. Negative for: Motor/Sensory Deficits - ECG O2 Sat by Pulse Oximetry: 99 (RA) Pulse Ox Interpretation: Normal Medical Decision Making Medical Decision Making: Time: 11:04 Initial Impression: Paresthesias Initial Plan: --Hand right 3 views [RAD] --Wrist, right 3 views [RAD] --Reevaluation 11:38 Hand X-Ray FINDINGS: BONES: Three views of the right hand were performed. No fracture is seen. No lytic process is noted. No dislocation of the phalanges is seen. Visualized carpal bones are unremarkable. Joint spaces are within normal limits. JOINTS: Normal. No osteoarthritic changes. SOFT TISSUES: Normal. OTHER FINDINGS: None. IMPRESSION: Normal right hand radiographs. 11:39 Wrist X-Ray FINDINGS: BONES: Three views of the right wrist were performed for right wrist pain. No fracture is seen. No dislocation of the carpal bones is seen. No abnormal malalignment of the carpal bones is noted. Navicular bone is intact. No erosions are seen. Distal radius and metacarpals are intact. JOINTS: Normal. No dislocation. SOFT TISSUES: Normal. OTHER FINDINGS: None. IMPRESSION: No appreciable fracture. Wrist immobilized in velcro splint. Scribe Attestation: Documented by Jamie Carson, acting as a scribe for Noel Whitley PA-C. Provider Scribe Attestation: All medical record entries made by the Scribe were at my direction and personally dictated by me. I have reviewed the chart and agree that the record accurately reflects my personal performance of the history, physical exam, medical decision making, and the department course for this patient. I have also personally directed, reviewed, and agree with the discharge instructions and disposition. Disposition - Clinical Impression Clinical Impression: Paresthesias - Patient ED Disposition Is Patient to be Admitted: No - Disposition Referrals: Alex Hicks MD [Medical Doctor] - Disposition: Routine/Home Disposition Time: 12:07 Condition: STABLE Additional Instructions: LINUS RIEVRA, thank you for letting us take care of you today. Your provider was Marleen Jon MD and you were treated for RT ARM PAIN. The emergency medical care you received today was directed at your acute symptoms. If you were prescribed any medication, please fill it and take as directed. It may take several days for your symptoms to resolve. Return to the Emergency Department if your symptoms worsen, do not improve, or if you have any other problems. Please contact your doctor or call one of the physicians/clinics you have been referred to that are listed on the Patient Visit Information form that is included in your discharge packet. Bring any paperwork you were given at discharge with you along with any medications you are taking to your follow up visit. Our treatment cannot replace ongoing medical care by a primary care pr ovider outside of the emergency department. Thank you for allowing the [email or web address] team to be part of your care today. If you had an X-Ray or CT scan: A Radiologist will review the ED reading if any change in treatment is needed we will contact you. If you had a blood, urine, or wound culture: It will take several days for the results, if any change in treatment is needed we will contact you. If you had an STI test: It will take 48 hours for the results. Please call after 1 week if you have not heard back. Prescriptions: RX: Naproxen [Naprosyn] 500 mg PO BID PRN #10 tab PRN Reason: Pain Instructions: Paresthesias (DC) Forms: [employer] ([employer]) Print Language: INDONESIAN
[2018-01-26 12:44] VITALS: BP 142/74; PULSE 82; RESP 18
[2018-01-26 13:02] VITALS: O2SAT 99
== END 2018-01-26 12:35 | disposition home or self-care (01) ==
LOC: H.ER 10:59
DX: R20.2 Paresthesia of skin (principal)

== ENCOUNTER 2018-03-21 06:03 | Emergency (ER) | payer OTHER ==
[2018-03-21 06:03] VITALS: BMI 26.4
[2018-03-21 06:16] VITALS: RESP 17; TEMP 97.6; O2SAT 99
--- NOTE | 2018-03-21 07:48 | ED PDOC ---
HPI: Nose Bleed Time Seen by Provider: 03/21/18 07:17 Chief Complaint (Nursing): GI Problem Chief Complaint (Provider): GI Problem History Per: Patient History/Exam Limitations: no limitations Onset/Duration Of Symptoms: Days (x1) Associated Symptoms: denies: Nasal Congestion Additional Complaint(s): 27 y/o male presents to ER for evaluation of spitting blood and nose bleed. Patient reports an episode of nose bleed yesterday from cleaning and another one in ER today. He states this morning he cospit blood 2x and reports associated cough. Patient denies any sore throat, runny nose, nose congestion, shortness of breath, chest pain, headache, dizziness, weakness, vomiting, nausea, diarrhea, chills or fever. No recent travel, leg pain, hormone tx. PMD: non provided Past Medical History Reviewed: Historical Data, Nursing Documentation, Vital Signs Vital Signs: Last Vital Signs Temp 97.6 F 03/21/18 06:12 Pulse 65 03/21/18 06:12 Resp 17 03/21/18 06:12 BP 140/79 03/21/18 06:12 Pulse Ox 99 03/21/18 06:12 - Medical History PMH: Anxiety, Bronchitis, Gastritis - Surgical History Surgical History: No Surg Hx - Family History Family History: States: Unknown Family Hx - Social History Current smoker - smoking cessation education provided: Yes Alcohol: Social Drugs: Cannabis (Marijuana) - Immunization History Hx Tetanus Toxoid Vaccination: No Hx Influenza Vaccination: No Hx Pneumococcal Vaccination: No - Home Medications Home Medications: Ambulatory Orders Medication Instructions Recorded Ondansetron [Zofran] 4 mg PO Q6H PRN #10 tab 11/11/13 Sertraline [Zoloft] 50 mg PO DAILY 11/14/13 Acetaminophen/Hydrocodone Bi 1 tab PO TID PRN #8 tab 11/15/13 [Vicodin 300 mg-5 mg] Amoxicillin/Clavulanate [Augmentin 1 tab PO BID #6 tab 11/15/13 875 MG-125 MG] Ibuprofen [Motrin Tab] 600 mg PO Q8H PRN #20 tab 11/26/13 Penicillin VK [Penicillin VK Tab] 500 mg PO BID #20 tab 11/26/13 Acetaminophen [Tylenol] 650 mg PO Q6 #20 tab 09/05/14 Ibuprofen [Motrin] 600 mg PO Q8 #20 tab 09/05/14 Esomeprazole Magnesium [Nexium] 20 mg PO DAILY #30 ecc 10/22/14 LORazepam [Ativan] 0.5 mg PO Q8 PRN #6 tab 07/03/15 Albuterol HFA [Ventolin HFA 90 1 puff IH ASDIR #1 unit 08/30/16 mcg/actuation (8 g)] Azithromycin [Zithromax] 250 mg PO DAILY #6 tab 08/30/16 Benzonatate 200 mg PO TID PRN #20 capsule 08/30/16 Ibuprofen [Motrin] 600 mg PO Q8 PRN #15 tab 09/17/16 Dicyclomine [Bentyl] 20 mg PO BID #30 tab 05/20/17 Nitrofurantoin Macrocrystals 100 mg PO BID 5 Days cap 05/20/17 [Macrobid] Ranitidine HCl [Zantac] 150 mg PO BID #10 tablet 06/02/17 Naproxen [Naprosyn] 500 mg PO BID PRN #10 tab 01/26/18 - Allergies Allergies/Adverse Reactions: Allergies Allergy/AdvReac Type Severity Reaction Status Date / Time No Known Allergies Allergy Verified 06/02/17 20:40 Review of Systems ROS Statement: Except As Marked, All Systems Reviewed And Found Negative Constitutional: Negative for: Fever, Chills ENT: Positive for: Nose Discharge (bleed), Other (blood from mouth). Negative for: Nose Congestion, Throat Pain Cardiovascular: Negative for: Chest Pain Respiratory: Positive for: Cough. Negative for: Shortness of Breath Gastrointestinal: Negative for: Nausea, Vomiting, Diarrhea Neurological: Negative for: Weakness, Headache, Dizziness Physical Exam - Reviewed Nursing Documentation Reviewed: Yes Vital Signs Reviewed: Yes - Physical Exam Appears: Positive for: Non-toxic, No Acute Distress Head Exam: Positive for: ATRAUMATIC, NORMOCEPHALIC Skin: Positive for: Normal Color, Warm, Dry ENT: Positive for: Nasal Congestion, Pharyngeal Erythema (mild posterior), Other (mucous blood in back of throat. Dry blood in right nostril, no active bleeding.). Negative for: Tonsillar Exudate Neck: Positive for: Normal, Painless ROM, Supple Cardiovascular/Chest: Positive for: Regular Rate, Rhythm Respiratory: Positive for: Normal Breath Sounds Back: Positive for: Normal Inspection. Negative for: L CVA Tenderness, R CVA Tenderness Extremity: Positive for: Normal ROM. Negative for: Pedal Edema, Swelling Neurologic/Psych: Positive for: Alert, Oriented (x3) - Laboratory Results Interpretation Of Abn Labs: no acute - ECG O2 Sat by Pulse Oximetry: 99 (RA) Pulse Ox Interpretation: Normal - Progress ED Course And Treament: 924: Bloody nose from trauma. Likely spit up blood that came from the nose. AAOx3. Tolerated PO. Fu with pcp. Medical Decision Making Medical Decision Making: Time: 735 Initial plan: --Rapid Strep --Influenza A B Scribe Attestation: Documented by Abril Shaw, acting as a scribe for Bal Hurst MD. Provider Scribe Attestation: All medical record entries made by the Scribe were at my direction and personally dictated by me. I have reviewed the chart and agree that the record accurately reflects my personal performance of the history, physical exam, medical decision making, and the department course for this patient. I have also personally directed, reviewed, and agree with the discharge instructions and disposition. Disposition - Clinical Impression Clinical Impression: Epistaxis, Bloody sputum - Patient ED Disposition Is Patient to be Admitted: No Counseled Patient/Family Regarding: Studies Performed, Diagnosis, Need For Followup - Disposition Referrals: [facility] [Outside] - 03/25/18 Disposition: Routine/Home Disposition Time: 09:25 Condition: STABLE Additional Instructions: Return if not better in 3 days. Instructions: Nosebleeds, Coughing up Blood Forms: [facility] ED School/Work Excuse
[2018-03-21 13:07] VITALS: BP 137/75; PULSE 68
== END 2018-03-21 10:43 | disposition home or self-care (01) ==
LOC: H.ER 06:03
DX: R04.0 Epistaxis (principal); R04.2 Hemoptysis